=== PATIENT | male | born 1945 | race Caucasian/White ===

== ENCOUNTER → 2023-07-01 08:25 | Outpatient (REF) | payer MEDICARE, SELFPAY | LOC: RAD 08:25 | PROVIDERS: ATTENDING PHYSICIAN Specialist; FAMILY PHYSICIAN Family Medicine | DX: N18.4 Chronic kidney disease, stage 4 (severe) (principal); N17.9 Acute kidney failure, unspecified | CPT/HCPCS: 76770 ==

== ENCOUNTER 2024-01-20 12:52 | Emergency (ER) | payer MEDICARE, SELFPAY ==
[2024-01-20] VITALS (10 sets, daily range): BP systolic 146–188; BP diastolic 70–113; PULSE 53–76
[2024-01-20 14:14] LABS: % Basophils 1.2 % (0-2); % Immature Granulocytes 0.1 % (0-0.5); % Lymphocytes 9.9 % (20.5-51.1); % Monocytes 11.5 % (1.7-9.3); % Neutrophils 75.3 % (42.2-75.2); Absolute Basophils 0.1 10^3/uL (0-0.2); Absolute Eosinophils 0.2 10^3/uL (0-0.7); Absolute Lymphocytes 0.7 10^3/uL (1.2-3.4); Absolute Monocytes 0.9 10^3/uL (0.1-0.6); Absolute Neutrophils 5.6 10^3/uL (1.4-6.5); Hematocrit 37.6 % (39.0-52.0); Hemoglobin 12.5 g/dL (13.0-18.0); Mean Corp Hgb Conc. 33.2 g/dL (33.0-37.0); Mean Corpuscular Hgb 30.1 pg (27.0-31.0); Mean Corpuscular Volume 90.6 fL (80.0-94.0); Nucleated Red Blood Cells % 0 % (-); Platelet Count 216 10^3/uL (130-400); Red Blood Cell Count 4.15 10^6/uL (4.70-6.10); Red Cell Dist. Width 13.9 % (11.5-14.5); White Blood Cell Count 7.5 10^3/uL (4.8-10.8)
--- NOTE | 2024-01-20 14:21 | ED.GENMED ---
History of Present Illness
General
Chief Complaint: Gait Dysfunction
Source: patient
Exam Limitations: none
Time Seen by Provider: 01/20/24 13:22
Nursing documentation reviewed up to this point in time: agreed with
History of Present Illness
History of Present Illness:
pt is a 78 y/o M with h/o OR, cad with stents, DM, neuropathy
says that he was walking yesterday and was on a slight downhill slope on the grass and couldt stop himself from falling forward and hitting head on the ground
he says his momentum took him forward and he couldn't stop himself
he also coudn't get himself up on his own, had to be helped by 2 people
initially said that he wasn't dizzy but then says he feels dizzy when he walks around sometimes since this all happaned
he doesn't feel focally weak anywhere, but just has to have a wider gait than normal
he also told his family that for a few days he felt some funny feeling in his chest, some mild discomfort, comes and goes without exertion. no sob, cough, fever, chills, vomiting, nausea
does have mild headache forehead where he hit the ground
no blood thinners, baby asa
denies any other injuries from the fall
no neck pain
Past History
Past History
ED Past Medical History: CAD, HTN, NIDDM and Other (Chronic kidney disease, gallstone pancreatitis)
ED Past Surgical History: Cardiac, Cholecystectomy and Other
Social History
Tobacco: Non-smoker
Alcohol: None
Drug: None
Personal:
Living: with family
Employment: Retired
Family History
Family History: Diabetes
Review of Systems
Review of Systems
Allergies reviewed?: Yes
All Other Systems: Not applicable
Phy Exam
Physical Exam
Physical Exam:
GENERAL: Alert , in no apparent distress
HEAD: red armin/bruising to left forehead, no STS
nontender
NECK: no midline tenderness, active ROM intact, no paraspinal muscle tenderness;
EYE: pupils equal and reactive, EOMs intact.
ENT: o/p clr, mmm. no hemotympanum
CARDIAC: Regular rate and rhythm, no edema
LUNGS: Clear breath sounds bilaterally, no acute respiratory distress, no wheezes/rales/rhonchi
ABDOMEN: Soft, without focal tenderness, no r/g, no cvat
NEUROLOGICAL: Alert and oriented, no focal neuro deficits, CN intact, 5/5 strength, sensation intact,
wide based gait but steady, seems able to walk without assistance;
SKIN: Warm and dry,
MUSCULOSKELETAL: No edema, well perfused.
PSYCH: Normal and appropriate interaction.
Course
Orders/Labs/Results
Orders:
Orders
01/20/24 13:51
Electrocardiogram (*1) Urgent
Reason for Study: Chest Pain
EKG- Treatment ONCE
01/20/24 13:58
CMP [Comprehensive Metabolic Panel] Urgent
Complete Blood Count/With Diff Urgent
01/20/24 13:59
Troponin I Urgent
01/20/24 14:17
CT Head W/o Iv Contrast Urgent
Comment:
Reason For Exam: fall, ataxia, hit head
Orthostatic VS- Treatment ONCE
CR Chest - 2 Views Urgent
Comment:
Reason For Exam: chest pain a few days
01/20/24 15:04
COVID-19 Antigen Urgent
Source: Nasal Swab
01/20/24 15:12
0.9% Sodium Chloride 1000 ml [Nss] 1,000 ml IV BOLUS
Abnormal Lab Results
01/20/24
13:58
RBC 4.15 L 10^6/uL
(4.70-6.10)
Hgb 12.5 L g/dL
(13.0-18.0)
Hct 37.6 L %
(39.0-52.0)
Absolute Lymphs (auto) 0.7 L 10^3/uL
(1.2-3.4)
Absolute Monos (auto) 0.9 H 10^3/uL
(0.1-0.6)
Neutrophils % 75.3 H %
(42.2-75.2)
Lymphocytes % 9.9 L %
(20.5-51.1)
Monocytes % 11.5 H %
(1.7-9.3)
Carbon Dioxide 21 L mmol/L
(22-30)
BUN 73 H mg/dl
(9-20)
Creatinine 3.4 H mg/dL
(0.7-1.3)
Glucose 157 H mg/dl
(70-99)
01/20/24 13:58
01/20/24 13:58
Vital Signs
Initial and Last Documented VS:
Initial Vital Signs
Temp Pulse Resp BP Pulse Ox
98.1 F 70 16 163/77 97
01/20/24 12:53 01/20/24 12:53 01/20/24 12:53 01/20/24 12:53 01/20/24 12:53
Last Documented Vital Signs
Temp Pulse Resp BP Pulse Ox
98.1 F 64 9 170/70 97
01/20/24 12:53 01/20/24 17:00 01/20/24 17:00 01/20/24 17:00 01/20/24 16:09
MDM/Problems Addressed
Differential Diagnosis Includes:
stroke, dehydration, orthostasis, concussion
MDM/Problems Addressed:
78 y/o M
had a fall ysterday
was walking down a slight slope and fell forward and hit head on ground
no loc
no thinners
says he feels his gait is a little off now
hasn't taken his bp meds today
mild headache frontal where he hit his head
no neck pain
intiially told me no dizziness but then says sometimes he feels lightheaded
not rooms pinning
neuro nitact
hypertensive, didn't nick emeds, he took them while here
no neck tendneress
tilt slightly with HR elevation and felt symtpoamtic
BUN 70s cr 3.4 up from 2,8
no h/o chf
given ivf and reassessed
felt much better
saying he feels well to go home, able to walk to bathroom
d/w ed attending who agreed.
*Critical Care Note
Total Time (30-74mins, 75-104mins- exclusive of procedures): Not Applicable
ED Attending Note
-
Portions of this chart may have been created with voice recognition software.� Occasional wrong word or��sound alike� substitutions may have occurred due to the inherent limitations of voice recognition software.
Discharge Plan
Departure
Patient Disposition: Home (Routine Discharge)
Date of Disposition: 01/20/24
Time of Disposition: 17:29
Patient with high blood pressure during this ER visit?: No
Condition: Fair
Discharge Problem:
Dehydration, Fall
Instructions: Dehydration, Adult ED, Preventing Falls ED
Prescriptions:
No Action
saxagliptin [Onglyza] 2.5 MG tablet
2.5 mg PO QPM
isosorbide mononitrate 30 MG tablet extended release 24 hr
30 mg PO DAILY 30 Days Qty: 30 0RF
amlodipine 5 MG tablet
5 mg PO DAILY
rosuvastatin 5 MG tablet
5 mg PO QPM
aspirin 81 MG tablet,delayed release (DR/EC)
81 mg PO DAILY
metoprolol succinate 25 MG tablet extended release 24 hr
25 mg PO DAILY
Referrals:
Salinas Guevara MD [Family Provider] - Follow up in 2-3 days
Activity Restrictions/Additional Instructions:
YOU WERE DEHYDRATED
AND YOUR BLOOD PRESSURE WAS ELEVATED
MAKE SURE TO TAKE YOUR BMEDICATIONS PRESCRIBED
STAY HYDRATED
YOUR CAT SCAN OF YOUR HEAD WAS NEGATIVE
RETURN FOR WORSENING GAIT PROBLEMS, TROUBLE WALKING, DIZZINESS, PASSING OUT, CHEST PAIN OR ANY CONCERNS.
Interventions
Interventions:
*Risk Screen - Suicide Last Done: 01/20/24 13:47
*General Assessment Last Done: 01/20/24 12:53
*Neglect/Abuse Screening Last Done: 01/20/24 13:47
ED- Fall Risk Assessment Last Done: 01/20/24 17:34
*ED COVID-19 Vaccine History Last Done: 01/20/24 12:53
*Nursing Disposition Last Done: 01/20/24 17:52
ED- Neurological Assessment Last Done: 01/20/24 13:48
ED-Musculoskeletal Assessment Last Done: 01/20/24 13:48
ED Swallowing Screen Last Done: 01/20/24 13:47
Discharge Date and Time
Discharge Date/Time: 01/20/24 17:52
Print Language: AUSTRIAN
[2024-01-20 14:38] LABS: ALT (SGPT) 14 U/L (0-50); AST (SGOT) 26 U/L (17-59); Albumin 4.2 g/dl (3.5-5.0); Alkaline Phosphatase 74 U/L (38-126); Blood Urea Nitrogen 73 mg/dl (9-20); Calcium 8.7 mg/dl (8.4-10.2); Carbon Dioxide 21 mmol/L (22-30); Chloride 101 mmol/L (98-107); Glucose 157 mg/dl (70-99); Potassium 4.7 mmol/L (3.5-5.1); Sodium 137 mmol/L (135-145); Total Bilirubin 0.6 mg/dl (0.2-1.3); Total Protein 6.8 g/dl (6.3-8.2); eGFR 17.52
[2024-01-20 14:49] LABS: Troponin I < 0.012 ng/ml
[2024-01-20] MEDS: NSS 1000 IV (15:21)
[2024-01-20 15:51] LABS: COVID-19 Antigen Negative (Negative)
== END 2024-01-20 17:52 | disposition home or self-care (01) ==
LOC: EMR 12:52
PROVIDERS: Emergency Medicine; Physician Assistant; EMERGENCY PHYSICIAN Emergency Medicine; FAMILY PHYSICIAN Family Medicine
DX: E86.0 Dehydration (principal); W19.XXXA Unspecified fall, initial encounter; I25.10 Atherosclerotic heart disease of native coronary artery without angina pectoris; I25.2 Old myocardial infarction; I12.9 Hypertensive chronic kidney disease with stage 1 through stage 4 chronic kidney disease, or unspecified chronic kidney disease; E11.22 Type 2 diabetes mellitus with diabetic chronic kidney disease; N18.9 Chronic kidney disease, unspecified; Z83.3 Family history of diabetes mellitus; Z90.49 Acquired absence of other specified parts of digestive tract; Z95.5 Presence of coronary angioplasty implant and graft
CPT/HCPCS: 99284; 96360; 96361; 70450; 71046; 80053; 84484; 85025; 87811; 93005

== ENCOUNTER 2024-04-21 17:20 | Emergency (ER) | payer MEDICARE, SELFPAY ==
--- NOTE | 2024-04-21 17:22 | ED.GENMED ---
ED Provider Triage
<Yifan Peterson PA-C - Last Filed: 04/21/24 17:26>
-
Patient seen by provider in Triage?: Seen in Triage
Attestation: A medical screening examination has been initiated by a qualified medical provider. Based on the assessment performed at this time, it has been determined that an emergent medical condition may exist and the patient has been informed
that further medical evaluation and possible additional diagnostic testing may be needed.
HPI: Patient had a fall today 30 minutes ago, striking head. No LOC, takes ASA but no other thinners. no obvious injuries. tingling reported to hands and neck pain. CT head/c-spine ordered. C-collar applied
GENERAL: Alert , in no apparent distress
EYE: No visual abnormalities.
NECK: Trachea midline
ENT: No visible abnormalities.
LUNGS: No acute respiratory distress
NEUROLOGICAL: Alert and oriented
SKIN: Skin intact. No visible changes.
MUSCULOSKELETAL: Moving extremities normally
PSYCH: Normal and appropriate interaction.
This is a medical evaluation conducted in person to initiate diagnostic evaluation and provide initial therapeutics. Please see further documentation by the treating clinician.
History of Present Illness
<Yifan Peterson PA-C - Last Filed: 04/21/24 17:26>
General
Chief Complaint: Fall
Time Seen by Provider: 04/21/24 18:09
<Sarmad Clayton PA-C - Last Filed: 04/21/24 20:56>
General
Source: patient
Exam Limitations: none
History of Present Illness
History of Present Illness:
78-year-old male on a baby aspirin presents after trip and fall. He was walking the dog and fell forward. He landed hitting his forehead. He notes neck pain when he turns and headache. He also notes intermittent paresthesias to both arms. He
denies chest pain or shortness of breath. No abdominal pain. NO other complaints at this time.
Past History
<Yifan Peterson PA-C - Last Filed: 04/21/24 17:26>
Past History
ED Past Medical History: CAD, HTN, NIDDM and Other (Chronic kidney disease, gallstone pancreatitis)
ED Past Surgical History: Cardiac, Cholecystectomy and Other
Social History
Tobacco: Non-smoker
Alcohol: None
Drug: None
Personal:
Living: with family
Employment: Retired
Family History
Family History: Diabetes
Phy Exam
<Sarmad Clayton PA-C - Last Filed: 04/21/24 20:56>
Physical Exam
Physical Exam:
General: Well-appearing male no acute respiratory distress
HEENT: Normocephalic atraumatic
Heart: Regular rate and rhythm no murmurs
Lungs: Clear no wheeze
Neurologic exam: Alert and oriented good sensation to the upper and lower extremities. Good strength and symmetric strength to the upper and lower extremities.
Vascular: 2+ radial pulse bilateral wrist
Course
<Yifan Peterson PA-C - Last Filed: 04/21/24 17:26>
Orders/Labs/Results
Orders:
Orders
04/21/24 17:25
CT Cervical Spine W/o Iv Contr Urgent
Comment:
Reason For Exam: fall, head injury, neck pain
CT Head W/o Iv Contrast Urgent
Comment:
Reason For Exam: fall, head injury, neck pain
Cervical Collar- Treatment ONCE
Collar Type: Hard Cervical Collar
04/21/24 19:38
Prednisone [Deltasone] 20 mg PO NOW STA
Vital Signs
Initial and Last Documented VS:
Initial Vital Signs
Temp Pulse Resp BP Pulse Ox
98.2 F 84 18 185/101 99
04/21/24 17:24 04/21/24 17:24 04/21/24 17:24 04/21/24 17:24 04/21/24 17:24
Last Documented Vital Signs
Temp Pulse Resp BP Pulse Ox
98.2 F 88 17 142/88 98
04/21/24 17:24 04/21/24 20:00 04/21/24 20:00 04/21/24 20:00 04/21/24 20:00
<Sarmad Clayton PA-C - Last Filed: 04/21/24 20:56>
Orders/Labs/Results
Orders:
Orders
04/21/24 17:[address]
CT Cervical Spine W/o Iv Contr Urgent
Comment:
Reason For Exam: fall, head injury, neck pain
CT Head W/o Iv Contrast Urgent
Comment:
Reason For Exam: fall, head injury, neck pain
Cervical Collar- Treatment ONCE
Collar Type: Hard Cervical Collar
04/21/24 19:38
Prednisone [Deltasone] 20 mg PO NOW STA
Vital Signs
Initial and Last Documented VS:
Initial Vital Signs
Temp Pulse Resp BP Pulse Ox
98.2 F 84 18 185/101 99
04/21/24 17:24 04/21/24 17:24 04/21/24 17:24 04/21/24 17:24 04/21/24 17:24
Last Documented Vital Signs
Temp Pulse Resp BP Pulse Ox
98.2 F 88 17 142/88 98
04/21/24 17:24 04/21/24 20:00 04/21/24 20:00 04/21/24 20:00 04/21/24 20:00
<Keith Curran DO - Last Filed: 04/21/24 20:03>
Orders/Labs/Results
Orders:
Orders
04/21/24 17:25
CT Cervical Spine W/o Iv Contr Urgent
Comment:
Reason For Exam: fall, head injury, neck pain
CT Head W/o Iv Contrast Urgent
Comment:
Reason For Exam: fall, head injury, neck pain
Cervical Collar- Treatment ONCE
Collar Type: Hard Cervical Collar
04/21/24 19:38
Prednisone [Deltasone] 20 mg PO NOW STA
Vital Signs
Initial and Last Documented VS:
Initial Vital Signs
Temp Pulse Resp BP Pulse Ox
98.2 F 84 18 185/101 99
04/21/24 17:24 04/21/24 17:24 04/21/24 17:24 04/21/24 17:24 04/21/24 17:24
Last Documented Vital Signs
Temp Pulse Resp BP Pulse Ox
98.2 F 88 17 142/88 98
04/21/24 17:24 04/21/24 20:00 04/21/24 20:00 04/21/24 20:00 04/21/24 20:00
<Sarmad Clayton PA-C - Last Filed: 04/21/24 20:56>
MDM/Problems Addressed
Differential Diagnosis Includes:
Mechanical fall with head strike. He also has paresthesias to the arms. Concern for possible occult spine injury. CT head and cervical spine pending he is neurologically intact without deficit currently.
<Sarmad Clayton PA-C - Last Filed: 04/21/24 20:56>
*Critical Care Note
Total Time (30-74mins, 75-104mins- exclusive of procedures): Not Applicable
ED Attending Note
<Yifan Peterson PA-C - Last Filed: 04/21/24 17:26>
-
Portions of this chart may have been created with voice recognition software.� Occasional wrong word or��sound alike� substitutions may have occurred due to the inherent limitations of voice recognition software.
<Keith Curran DO - Last Filed: 04/21/24 20:03>
ED Attending Note
Patient seen and examined by attending physician: Yes
I performed the substantive portion of visit, reviewed & personally made and approve the management plan that is documented in note by myself or TAYLOR.: Yes
ED Attending Note:
Patient is a 78-year-old male who presents to the emergency department after tripping and falling today and striking his head. Patient was able to get over to the grass and with the help of his stand up. Patient walked home. Patient called
his doctor and was sent to the emergency department. Patient does complain of some tingling and numbness in his left hand especially about the index and middle fingers. Patient no loss of consciousness. Patient denies any neck or head pain.
Patient denies any visual or speech difficulties. Patient denies any focal weakness or ataxia. Patient denies chest pain, shortness of breath or palpitations. Patient denies any nausea or vomiting. On physical exam the patient does not appear to
be any distress and is normocephalic with no tenderness. Patient has no cervical spine tenderness. Neurologically patient is intact except for the numbness in the left hand. Patient has no Tinel's sign. CT does not show any acute injury. It
appears the patient has a minor closed head injury from falling. Patient also has a cervical radiculopathy. Patient is diabetic. Patient does not check his sugars. Patient will be treated with low-dose steroids and to follow-up with his family
doctor.
Discharge Plan
Departure
Patient Disposition: Home (Routine Discharge)
Date of Disposition: 04/21/24
Time of Disposition: 19:43
Patient with high blood pressure during this ER visit?: Yes
Condition: Good
Covid-19: Not Applicable
Discharge Problem:
Minor closed head injury, Cervical radiculopathy
Instructions: Head Injury in Adults (DC), Radiculopathy (DC), Preventing falls in adults, BLOOD PRESSURE
Prescriptions:
New
methylprednisolone [Medrol (Ganga)] 4 mg tablets,dose pack
See Rx Instructions .ROUTE .COMPLEX Qty: 21 0RF
Rx Instructions:
Take as directed for 6 days
No Action
saxagliptin [Onglyza] 2.5 MG tablet
2.5 mg PO QPM
isosorbide mononitrate 30 MG tablet extended release 24 hr
30 mg PO DAILY 30 Days Qty: 30 0RF
amlodipine 5 MG tablet
5 mg PO DAILY
rosuvastatin 5 MG tablet
5 mg PO QPM
aspirin 81 MG tablet,delayed release (DR/EC)
81 mg PO DAILY
metoprolol succinate 25 MG tablet extended release 24 hr
25 mg PO DAILY
Referrals:
Salinas Guevara MD [Family Provider] - Follow up in 2-3 days
Activity Restrictions/Additional Instructions:
Continue present medications and therapy. Make sure to see Dr. Guevara in a few days and make sure to have your blood sugar checked. Any problems please return.
Interventions
Interventions:
*Risk Screen - Suicide Last Done: 04/21/24 17:47
*General Assessment Last Done: 04/21/24 17:47
*Neglect/Abuse Screening Last Done: 04/21/24 17:47
ED- Fall Risk Assessment Last Done: 04/21/24 19:00
*ED COVID-19 Vaccine History Last Done: 04/21/24 17:47
*Nursing Disposition Last Done: 04/21/24 20:15
ED-Musculoskeletal Assessment Last Done: 04/21/24 17:47
ED- Neurological Assessment Last Done: 04/21/24 17:47
ED-Skin Assessment Last Done: 04/21/24 17:47
Discharge Date and Time
Discharge Date/Time: 04/21/24 20:16
Print Language: NEPALESE
[2024-04-21 17:24] VITALS: BP 185/101
[2024-04-21] MEDS: DELTASONE 20 MG PO (19:54)
[2024-04-21 20:00] VITALS: BP 142/88
== END 2024-04-21 20:16 | disposition home or self-care (01) ==
LOC: EMR 17:20
PROVIDERS: EMERGENCY PHYSICIAN Emergency Medicine; FAMILY PHYSICIAN Family Medicine
DX: S09.90XA Unspecified injury of head, initial encounter (principal); M54.12 Radiculopathy, cervical region; W01.0XXA Fall on same level from slipping, tripping and stumbling without subsequent striking against object, initial encounter; Y93.K1 Activity, walking an animal; I25.10 Atherosclerotic heart disease of native coronary artery without angina pectoris; I12.9 Hypertensive chronic kidney disease with stage 1 through stage 4 chronic kidney disease, or unspecified chronic kidney disease; E11.22 Type 2 diabetes mellitus with diabetic chronic kidney disease; N18.9 Chronic kidney disease, unspecified; Z79.01 Long term (current) use of anticoagulants; Z83.3 Family history of diabetes mellitus; Z86.73 Personal history of transient ischemic attack (TIA), and cerebral infarction without residual deficits; Z90.49 Acquired absence of other specified parts of digestive tract
CPT/HCPCS: 99284; 70450; 72125

== ENCOUNTER 2024-12-22 18:46 | Emergency (ER) | payer MEDICARE, SELFPAY ==
[2024-12-22 18:49] VITALS: BP 140/75
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
[2024-12-22] MEDS: ADACEL 0.5 ML IM (19:35)
== END 2024-12-22 20:47 | disposition home or self-care (01) ==
LOC: EMR 18:46
PROVIDERS: EMERGENCY PHYSICIAN Emergency Medicine; FAMILY PHYSICIAN Family Medicine
DX: S60.511A Abrasion of right hand, initial encounter (principal); S50.11XA Contusion of right forearm, initial encounter; W50.0XXA Accidental hit or strike by another person, initial encounter; Z23 Encounter for immunization; I25.10 Atherosclerotic heart disease of native coronary artery without angina pectoris; I12.9 Hypertensive chronic kidney disease with stage 1 through stage 4 chronic kidney disease, or unspecified chronic kidney disease; N18.9 Chronic kidney disease, unspecified; E11.22 Type 2 diabetes mellitus with diabetic chronic kidney disease; I25.2 Old myocardial infarction; Z95.5 Presence of coronary angioplasty implant and graft; Z79.82 Long term (current) use of aspirin; Z79.02 Long term (current) use of antithrombotics/antiplatelets; Z90.49 Acquired absence of other specified parts of digestive tract
CPT/HCPCS: 99282; 90471; 90715